=== PATIENT | female | born 1960 | race African-American/Black ===

== ENCOUNTER 2016-11-16 08:00 | Inpatient (IN) | payer BC ==
[2016-11-05 11:04] VITALS: BMI 29.2
[~2016-11-16 08:00] MED LIST: CEFAZOLIN 1 GM/D5W 50 ML IVPB ONE; ROPIVICAINE 0.2%/MORPH PF/KETOROLAC - 51ML DISP.SYRINGE IA ONE; TRANEXAMIC ACID 1000 MG/10 ML VIAL IVPUSH ONE
[2016-11-16] MEDS: GABAPENTIN 300 MG CAPSULE (FP) PO ONE ×2 (10:10→19:06)
[2016-11-16] MEDS: oxyCODONE HCL 10 MG SUSTAINED ACTING TABLET PO ONE ×2 (10:10→19:06)
[2016-11-16] MEDS: CELECOXIB 200 MG CAPSULE PO ONE ×2 (10:10→19:06)
[2016-11-16] MEDS ORDERED: VANCOMYCIN 1,000 MG VIAL (RESTRICTED TO ID ONLY) ONE (10:37)
[2016-11-16] MEDS ORDERED: ROPIVICAINE 0.2%/MORPH PF/KETOROLAC - 51ML DISP.SYRINGE IA ONE (10:37)
[2016-11-16] MEDS ORDERED: ceFAZolin SODIUM 1 GM VIAL ONE ×2 (10:37→12:13)
[2016-11-16] MEDS ORDERED: SODIUM CHLORIDE 0.9% P/F 10 ML VIAL IJ ONE (10:39)
[2016-11-16] MEDS ORDERED: ROPIVACAINE HCL 0.5% 30ML VIAL ONE (10:39)
[2016-11-16] MEDS ORDERED: MIDAZOLAM HCL 2 MG/2 ML SINGLE DOSE VIAL ONE (10:39)
[2016-11-16] MEDS ORDERED: DEXAMETHASONE SOD PHOSPHATE/PF 10 MG/ML SDV ONE (10:39)
[2016-11-16] MEDS ORDERED: TRANEXAMIC ACID 1000 MG/10 ML VIAL ONE ×4 (10:46→15:25)
[2016-11-16] MEDS ORDERED: BUPIVACAINE HCL/PF 0.5% (5MG/ML) 10 ML VIAL ONE (11:54)
[2016-11-16] MEDS ORDERED: PROPOFOL 20 ML ONE ×3 (12:07)
--- NOTE | 2016-11-16 12:20 | HP ---
Admitting History and Physical - Admission Chief Complaint: Left knee OA History of Present Illness: 56yo female with left knee pain x several years. She was treated conservatively in the office but continued to have severe pain. Xrays revealed severe OA. Pt indicated for left knee replacement History Source: Patient, Medical Record Limitations to Obtaining History: No Limitations - Smoking History Smoking history: Never smoked Have you smoked in the past 12 months: No - Alcohol/Substance Use Hx Alcohol Use: Yes (FEW TIMES PER WEEK) Home Medications - Allergies Allergies/Adverse Reactions: Allergies Allergy/AdvReac Type Severity Reaction Status Date / Time No Known Allergies Allergy Verified 11/16/16 09:23 - Home Medications Home Medications: Ambulatory Orders Hydrochlorothiazide [Hctz -] 12.5 mg PO DAILY 11/05/16 Metformin HCl [Metformin HCl ER] 500 mg PO BID 11/05/16 Physical Examination Vital Signs: Vital Signs Temperature 98.2 F 11/16/16 09:27 Pulse Rate 70 11/16/16 09:27 Respiratory Rate 16 11/16/16 09:27 Blood Pressure 108/70 11/16/16 09:27 O2 Sat by Pulse Oximetry (%) Constitutional: Yes: Well Nourished, No Distress Eyes: Yes: WNL, Conjunctiva Clear HENT: Yes: WNL, Atraumatic, Normocephalic Neck: Yes: WNL, Supple Cardiovascular: Yes: WNL, Regular Rate and Rhythm Respiratory: Yes: WNL, Regular Gastrointestinal: Yes: WNL, Soft ...Rectal Exam: Yes: Deferred Renal/: Yes: WNL Musculoskeletal: Yes: Joint Stiffness, Joint Swelling Edema: No Peripheral Pulses WNL: Yes Integumentary: Yes: WNL Neurological: Yes: WNL, Alert, Oriented ...Motor Strength: WNL Psychiatric: Yes: WNL, Alert, Oriented Labs: reviewed in chart Imaging - Results X-ray: Image Reviewed Problem List - Problems (1) Localized osteoarthritis of left knee Code(s): M17.9 - OSTEOARTHRITIS OF KNEE, UNSPECIFIED
[2016-11-16] MEDS ORDERED: ROPIVACAINE 0.2% 400ML 400 ML ML NR ONE (15:00)
--- NOTE | 2016-11-16 15:26 | OP ---
Operative Note - Note: Operative Date: 11/16/16 Pre-Operative Diagnosis: left knee OA Operation: left TKA Post-Operative Diagnosis: Same as Pre-op Surgeon: Bobby Naylor Associate Loan Officer: Marcella Pro Anesthesia: Spinal Estimated Blood Loss (mls): 100
[2016-11-16] MEDS ORDERED: MAGNESIUM HYDROX 2400MG/30ML ORAL SUSPENSION 30 ML CUP PO PRN (15:29)
[2016-11-16] MEDS ORDERED: ONDANSETRON 4 MG/2 ML VIAL IVPB PRN (15:29)
[2016-11-16] MEDS ORDERED: LACTATED RINGERS SOLUTION 1,000 ML IV SCH (15:30)
[2016-11-16] MEDS ORDERED: MAG HYDROX/AL HYDROX/SIMETH 30 ML UNIT-DOSE CUP PO PRN (15:50)
[2016-11-16] MEDS ORDERED: ACETAMINOPHEN 325 MG TABLET (FP) ONE (16:36)
[2016-11-16] MEDS ORDERED: traMADol HCL 50 MG TABLET ONE (16:37)
[2016-11-16] MEDS ORDERED: KETOROLAC TROMETHAMINE 30 MG/1 ML VIAL ONE (16:37)
[2016-11-16] MEDS: traMADol HCL 50 MG TABLET PO SCH ×2 (16:40→19:07)
[2016-11-16] MEDS: KETOROLAC TROMETHAMINE 30 MG/1 ML VIAL IVPUSH SCH ×2 (16:40→21:20)
[2016-11-16] MEDS: CEFAZOLIN 1 GM/D5W 50 ML IVPB SCH (19:09)
[2016-11-16] MEDS ORDERED: oxyCODONE HCL 5 MG TABLET PO PRN (19:23)
[2016-11-16] MEDS: oxyCODONE HCL 5 MG TABLET PO PRN (19:26)
[2016-11-16] MEDS: ACETAMINOPHEN 325 MG TABLET (FP) PO SCH (19:26)
[2016-11-16] MEDS: CELECOXIB 200 MG CAPSULE PO SCH (21:19)
[2016-11-16] MEDS: GABAPENTIN 300 MG CAPSULE (FP) PO SCH (21:19)
[2016-11-16] MEDS: ASCORBIC ACID 500 MG TABLET (FP) PO SCH (21:19)
[2016-11-16] MEDS: oxyCODONE HCL 10 MG SUSTAINED ACTING TABLET PO SCH (21:19)
[2016-11-16] MEDS: SENNOSIDES/DOCUSATE COMBO (SENNA PLUS) TABLET (UD) PO SCH (21:19)
--- NOTE | 2016-11-16 21:29 | SPEC ---
DATE OF OPERATION: 11/16/2016 PREOPERATIVE DIAGNOSIS: Left knee osteoarthritis. POSTOPERATIVE DIAGNOSIS: Left knee osteoarthritis. PROCEDURE: Left total knee replacement. ATTENDING: Bobby Naylor MD ACOUSTICS TEACHER: DARLEEN Escudero ANESTHESIA: Spinal plus sedation. ESTIMATED BLOOD LOSS: 100 mL. COMPLICATIONS: None. SPECIMEN: Resected bone was sent for pathology analysis. DISPOSITION: The patient was transferred to the PACU in stable condition. INDICATIONS: This is a 56-year-old female who presented to the office complaining of bilateral right knee pain. She was diagnosed with bilateral knee osteoarthritis which was severe. The left was the more symptomatic knee and because she had failed conservative management with medications, injections, and physical therapy, she was indicated for a total knee replacement. The risks, benefits and alternatives to the procedure were explained to the patient in great detail and she elected to proceed with the surgery. On the day of surgery, the patient was taken to the operating room and placed on the OR table. Spinal anesthesia was administered by the anesthesiologist. The patient was then positioned supine on the table and all bony prominences were padded. A nonsterile tourniquet was placed on the proximal thigh. The knee was then prepped and draped in the usual sterile fashion and intravenous antibiotics were given for infection prophylaxis. A surgical time-out was then performed with the team, and the patients identity, procedure, side, availability of implants, and the administration of antibiotics was confirmed. The leg was then elevated and exsanguinated, and the tourniquet was inflated. With the knee flexed, a midline incision was made and carried down through the subcutaneous fat to the underlying retinaculum. A medial parapatellar arthrotomy was performed. This was followed by a subperiosteal dissection of the tissue off the proximal, medial tibia. A portion of fat pad was removed from under the patellar tendon, and a small portion of fat was excised off the distal supracondylar femur. The knee was then flexed further and the anterior horn of the lateral meniscus was released from the midline. Next, the anterior and posterior cruciate ligaments were transected. Osteophytes were removed from both the femur and tibia. Grade 4 changes were noted diffusely throughout the knee. Hohmann retractors were then placed around the distal femur. The starting drill was used to enter the intramedullary canal. The starting point had been chosen by checking the radiographs and anatomy. Proper alignment and intramedullary placement was then confirmed by placing the long narrow harsh into the femur. Next, the distal femoral cutting guide was adjusted to 6 degrees of valgus and pinned to the femur. The bone resection was assessed using an jakob-wing. An approximately 10mm distal cut was made and the cut pieces measured. Once this was complete, the sizing guide was used to determine which size femoral component should be used. Next, the appropriately sized 4-in-1 cutting block was then placed at the correct amount of external rotation and the jakob wing was used to assure that there would be no notching of the anterior cortex of the femur. Once this was done, Hohmann retractors were used to protect the medial and lateral collateral ligaments, and all appropriate bone cuts were made. Attention was then turned to the tibia. Hohmann retractors were used to translate the tibia anteriorly and protect the collateral ligaments. The medial and lateral menisci were removed. The extramedullary tibial alignment guide was then placed and adjusted for rotation, varus/valgus, and slope. The height of the cutting block was adjusted to the level of the desired bone resection and then pinned in place. The proximal tibia was then cut with a saw and the bone was removed and measured. Once this was completed, trial components were placed and the knee was taken through a full range of motion. Soft tissue balance was assessed in both flexion and extension and found to be appropriate. The knee was stable throughout the full range of motion. The knee was then put into extension and the patella everted. The synovium around the patella was circumscribed with electrocautery. A caliper was used to measure the patellar thickness and a saw was then used to resect the patella at the chondro-osseous junction. The cut surface was then sized and drilled for the appropriate patellar button, with care taken to medialize it. A trial patella was then placed and the knee was again taken through a full range of motion. The knee was found to have both good balance and good patellar tracking. All of the components were removed except the tibial base plate. The appropriate instrumentation was used to drill and punch the proximal tibia for the keel of the final component. All bony surfaces were then cleaned with pulsatile lavage and dried. Bone cement was then prepared on the back table, and final components were cemented in place in the usual fashion. Extruded cement was removed. The polyethylene trial was placed, the knee was put into extension, and axial pressure was applied for compression while the cement hardened. The patellar button was similarly cemented into place. Once the cement had hardened, the knee was taken through a full range of motion to assess stability, balance, and patellar tracking. This was found to be optimal and the trial polyethylene was exchanged for the appropriately sized real implant. The wound was then thoroughly irrigated with normal saline. No. 1 Polysorb and 0 VLoc 180 barbed sutures were used to close the arthrotomy. No. 1 Polysorb and 2-0 Polysorb sutures were used in the subcutaneous tissues. The skin was closed using both 3-0 VLoc 90 suture in a running subcuticular fashion and SwiftSet skin adhesive. Once this was completed a sterile Aquacel dressing and compressive Bobby-wrap was applied. The tourniquet was then deflated and the patient was awakened and taken to the PACU in stable condition. Jhoana PATRICK/[id number]
[2016-11-17] MEDS: ACETAMINOPHEN 325 MG TABLET (FP) PO SCH ×4 (01:30→19:30)
[2016-11-17] MEDS: CEFAZOLIN 1 GM/D5W 50 ML IVPB SCH (02:17)
[2016-11-17] MEDS: KETOROLAC TROMETHAMINE 30 MG/1 ML VIAL IVPUSH SCH ×2 (03:18→09:27)
[2016-11-17] MEDS: traMADol HCL 50 MG TABLET PO SCH ×4 (05:48→17:48)
[2016-11-17 08:07] LABS: MCH 28.6 pg (25.7-33.7); MCHC 34.4 g/dl (32.0-36.0); MEAN CELL VOLUME 83.2 fl (80-96); MEAN PLT VOLUME 9.7 fl (7.5-11.1); PLATELET COUNT 208 K/MM3 (134-434); RDW 12.3 % (11.6-15.6); WHITE BLOOD COUNT 7.5 K/mm3 (4.0-10.0)
[2016-11-17] MEDS: ASPIRIN 325 MG TABLET PO SCH (08:12)
[2016-11-17] MEDS: oxyCODONE HCL 5 MG TABLET PO PRN ×3 (08:13→21:38)
[2016-11-17 08:24] LABS: CALCIUM 8.7 mg/dl (8.4-10.2); CREATININE 0.7 mg/dl (0.6-1.3)
[2016-11-17] MEDS: MULTIVITAMINS (DAILY MVI) TABLET (FP) PO SCH (09:25)
[2016-11-17] MEDS: PANTOPRAZOLE 40 MG TABLET (FP) PO SCH (09:25)
[2016-11-17] MEDS: SENNOSIDES/DOCUSATE COMBO (SENNA PLUS) TABLET (UD) PO SCH ×2 (09:25→21:38)
[2016-11-17] MEDS: HYDROCHLOROTHIAZIDE 12.5 MG CAPSULE (FP) PO SCH (09:25)
[2016-11-17] MEDS: ASCORBIC ACID 500 MG TABLET (FP) PO SCH ×2 (09:26→21:38)
[2016-11-17] MEDS: CELECOXIB 200 MG CAPSULE PO SCH ×2 (09:26→21:38)
[2016-11-17] MEDS: GABAPENTIN 300 MG CAPSULE (FP) PO SCH ×2 (09:26→21:38)
[2016-11-17] MEDS: oxyCODONE HCL 10 MG SUSTAINED ACTING TABLET PO SCH ×2 (09:31→22:07)
--- NOTE | 2016-11-17 13:54 | PN ---
Progress Note (short form) - Note Progress Note: 56F POD1 s/p left TKR under spinal anesthetic with continuous adductor canal catheter and selective tibial blocks for post-operative pain. Pt is doing well, AVSS, reports no anesthetic complications. Pain is well controlled. There is a minimal amount of leakage around adductor canal catheter, but site is clean, and patient is receiving good pain relief, so will leave. Catheter and connection appears intact. Sensory and motor function is intact in both lower extremities.
--- NOTE | 2016-11-17 23:42 | PN ---
Progress Note (short form) - Note Progress Note: Pt seen and examined. Comfortable, no complaints. AVSS Selected Entries 11/17/16 22:34 Temperature 98.2 F Pulse Rate 83 Respiratory 18 Rate Blood Pressure 120/64 O2 Sat by Pulse 98 Oximetry (%) Laboratory Tests 11/17/16 11/17/16 07:00 07:00 WBC 7.5 Hgb 10.7 Hct 31.1 L Plt Count 208 Sodium 136 Potassium 3.8 Chloride 102 Carbon Dioxide 27 Anion Gap 7 L BUN 12 Creatinine 0.7 Random Glucose 114 H Calcium 8.7 Gen: NAD LLE: c/d/i, NVID A/P 56yo female POD#1 s/p L TKA 1. PT/OOB 2. D/C home tomorrow Problem List - Problems (1) Localized osteoarthritis of left knee Code(s): M17.9 - OSTEOARTHRITIS OF KNEE, UNSPECIFIED
[2016-11-18] MEDS: ACETAMINOPHEN 325 MG TABLET (FP) PO SCH ×2 (01:07→08:21)
[2016-11-18 06:31] VITALS: BP 128/58; PULSE 86; TEMP 99.3
[2016-11-18] MEDS: oxyCODONE HCL 5 MG TABLET PO PRN (06:35)
[2016-11-18] MEDS: traMADol HCL 50 MG TABLET PO SCH ×3 (06:36→11:38)
--- NOTE | 2016-11-18 08:00 | PN ---
Progress Note (short form) - Note Progress Note: 56F POD1 s/p L TKR under spinal anesthetic with continuous adductor canal catheter and selective tibial catheter doing well. Adductor canal catheter d/c' d today, tip intact. Site clean and dry. Sensory and motor function intact in both lower extremities.
[2016-11-18] MEDS: ASPIRIN 325 MG TABLET PO SCH (08:19)
[2016-11-18 08:52] LABS: MCH 28.8 pg (25.7-33.7); MCHC 34.7 g/dl (32.0-36.0); MEAN CELL VOLUME 82.8 fl (80-96); MEAN PLT VOLUME 10.4 fl (7.5-11.1); PLATELET COUNT 186 K/MM3 (134-434); RDW 12.4 % (11.6-15.6); WHITE BLOOD COUNT 7.2 K/mm3 (4.0-10.0)
[2016-11-18] MEDS: HYDROCHLOROTHIAZIDE 12.5 MG CAPSULE (FP) PO SCH (09:08)
[2016-11-18] MEDS: SENNOSIDES/DOCUSATE COMBO (SENNA PLUS) TABLET (UD) PO SCH (09:08)
[2016-11-18] MEDS: ASCORBIC ACID 500 MG TABLET (FP) PO SCH (09:08)
[2016-11-18] MEDS: oxyCODONE HCL 10 MG SUSTAINED ACTING TABLET PO SCH (09:08)
[2016-11-18] MEDS: CELECOXIB 200 MG CAPSULE PO SCH (09:08)
[2016-11-18] MEDS: MULTIVITAMINS (DAILY MVI) TABLET (FP) PO SCH (09:08)
[2016-11-18] MEDS: GABAPENTIN 300 MG CAPSULE (FP) PO SCH (09:08)
[2016-11-18 09:15] LABS: CALCIUM 8.8 mg/dl (8.4-10.2); CREATININE 0.6 mg/dl (0.6-1.3)
[2016-11-18] MEDS: PANTOPRAZOLE 40 MG TABLET (FP) PO SCH (10:17)
--- NOTE | 2016-11-18 10:51 | PN ---
Progress Note (short form) - Note Progress Note: Pt seen and examined. Comfortable, no complaints. AVSS Selected Entries 11/18/16 06:00 Temperature 99.3 F Pulse Rate 86 Respiratory 19 Rate Blood Pressure 128/58 O2 Sat by Pulse 97 Oximetry (%) Oxygen Delivery Room Air Method Laboratory Tests 11/18/16 11/18/16 07:35 07:35 WBC 7.2 Hgb 10.3 L Hct 29.5 L Plt Count 186 Sodium 136 Potassium 3.5 Chloride 98 Carbon Dioxide 29 H Anion Gap 9 BUN 11 Creatinine 0.6 Random Glucose 122 H Calcium 8.8 Gen: NAD LLE: c/d/i, NVID A/P 56yo female POD#2 s/p L TKA 1. PT/OOB 2. D/C home today Problem List - Problems (1) Localized osteoarthritis of left knee Code(s): M17.9 - OSTEOARTHRITIS OF KNEE, UNSPECIFIED
--- NOTE | 2016-11-18 16:19 | PATH ---
Surgical Pathology Report Patient Name: JAMIE CROFT Med. Rec. #: [id number] /Age/Gender: 1960 (Age: 56) / F Account: [id number] Location: [facility] Taken: 11/16/2016 Received: 11/16/2016 Reported: 11/18/2016 Physicians: Bobby Naylor M.D. Specimen(s) Received LEFT KNEE BONES Clinical History Left knee osteoarthritis Final Diagnosis BONE AND SOFT TISSUE, LEFT KNEE, REPLACEMENT: DEGENERATIVE JOINT DISEASE. Electronically Signed Matthew Maurice M.D. Gross Description Received in formalin, labeled "left knee bones," is a 13.5 x 10.0 x 2.3 cm aggregate of multiple irregular portions of bone and soft tissue. The tibial plateau measures 6.8 x 5.2 x 1.5 cm. There is a 2.3 cm in greatest dimension area of eburnation present. The remaining articular surfaces are rodriguez-yellow and diffusely granular. The underlying trabecular bone is yellow and hard. Campus Interviews Intern sections are submitted in one cassette, following decalcification. 11/17/2016 [facility]
--- NOTE | 2016-11-25 18:08 | SURG ---
Surgery Caddy Master Note Caddy Master: Marcella Pro PA-C Date of Service: 11/16/16 Diagnosis: left knee OA Procedure: left TKA I was present for the entirety of the operative procedure. For further detail, please refer to operative report. Visit type - Case Type Case Type: Scheduled Admission
== END 2016-11-18 11:50 | disposition home health service (06) | DRG 470 ==
LOC: FM/S 08:27
PROVIDERS: ADMIT Student in an Organized Health Care Education/Training Program; ATTEND Student in an Organized Health Care Education/Training Program
PROC: 0SRD0J9 Replacement of Left Knee Joint with Synthetic Substitute, Cemented, Open Approach (ICD-10-PCS; principal; 2016-11-16 11:50)
DX: M17.12 Unilateral primary osteoarthritis, left knee (principal); E11.9 Type 2 diabetes mellitus without complications; I10 Essential (primary) hypertension; E78.5 Hyperlipidemia, unspecified
CPT/HCPCS: 36415; 73560-TC-LT; 80048; 85027; 88305-TC; 88311-TC; 94760; 97116-GP; 97162-PG

== ENCOUNTER 2017-02-04 07:05 | Day surgery (SDC) | payer BC ==
[2017-02-01 14:31] VITALS: BMI 28.5
[2017-02-04] MEDS ORDERED: KETOROLAC TROMETHAMINE 60 MG/2 ML VIAL ONE (08:58)
[2017-02-04] MEDS ORDERED: LIDOCAINE 1% P/F 10 MG/ML VIAL ONE (08:59)
[2017-02-04] MEDS ORDERED: BUPIVACAINE HCL/PF 2.5 MG/ML - 30 ML VIAL IJ ONE (08:59)
[2017-02-04] MEDS ORDERED: HYDROmorphone HCL/PF 1 MG/ML VIAL (FOR PYXIS CHARGING ONLY) ONE (09:04)
--- NOTE | 2017-02-04 09:09 | HP ---
History & Physical Update - History Currently as noted:: S/P L TKA 11/16/15. Developed arthrofibrosis postop. Otherwise Hx unchanged - Physical Physical: No Change - Assessment Currently as noted:: Left knee arthrofibrosis - Plan Currently as noted:: Left knee manipulation under anesthesia.
[2017-02-04] MEDS ORDERED: ACETAMINOPHEN 325 MG TABLET (FP) PO PRN (09:46)
[2017-02-04] MEDS ORDERED: ONDANSETRON 4 MG/2 ML VIAL IVPUSH PRN (09:47)
[2017-02-04] MEDS ORDERED: ACETAMINOPHEN 1000 MG/100 ML VIAL (NON FORMULARY) IVPB ONE (09:51)
[2017-02-04] MEDS ORDERED: oxyCODONE HCL 10 MG SUSTAINED ACTING TABLET PO ONE (09:52)
[2017-02-04] MEDS ORDERED: oxyCODONE HCL 5 MG TABLET PO ONE (09:52)
[2017-02-04] MEDS ORDERED: CELECOXIB 200 MG CAPSULE PO ONE (10:01)
[2017-02-04 10:27] VITALS: TEMP 98
[2017-02-04 11:28] VITALS: BP 119/75; PULSE 74
--- NOTE | 2017-02-04 15:59 | OP ---
DATE OF OPERATION: 02/04/2017 PREOPERATIVE DIAGNOSIS: Left total knee replacement arthrofibrosis. POSTOPERATIVE DIAGNOSIS: Left total knee replacement arthrofibrosis. PROCEDURE: Left knee manipulation under anesthesia. ATTENDING: Meek Ulloa MD SANITATION WORKER CLEANING EQUIPMENT: None. ANESTHESIA: Sedation. ESTIMATED BLOOD LOSS: 0 mL. COMPLICATIONS: None. DISPOSITION: The patient was transferred to the PACU in stable condition. INDICATIONS: This is a 56-year-old female who underwent a left total knee replacement for osteoarthritis on November 16, 2016. She did well postoperatively but developed stiffness of the knee, which was slow to respond to physical therapy. At 10 weeks postoperative, she still had limited range of motion and was not making progress. We discussed manipulation under anesthesia in the office and the risks, benefits and alternatives to this procedure were explained to the patient. She elected to proceed with the procedure. DESCRIPTION: On the day of the procedure, the patient was brought to the procedure area and placed on a stretcher. Sedation was administered by the anesthesiologist. A time-out was performed with the team to verify the patient's name, procedure side and site. Once the patient was adequately anesthetized, the pre-procedure range of motion of the left knee was measured with a goniometer. This was found to be 10 to 105 degrees with firm endpoints in both flexion and extension. With the patient adequately anesthetized, manipulation under anesthesia was performed. The knee was carefully pushed past its limits of flexion and extension with care taken to avoid placing excessive stress on the bone to minimize the risk of fracture. Scar tissue bands were audibly disrupted as the manipulation progressed and the final range of motion as measured with the goniometer was 0 to 130 degrees. At the conclusion of the procedure, the left knee was sterilely prepped and an intraarticular injection of 60 mg of Toradol, 2 mL of 1% lidocaine, and 6 mL of 0.25% Marcaine was injected. The patient was then awakened and taken to the PACU in stable condition. The plan for her post procedure will be to start physical therapy as soon as possible. She was given a new prescription for this. In addition, she would be given additional pain medications so that she can continue to move the knee to prevent re-fibrosis and reaccumulation of scar tissue. MEEK ULLOA M.D. [id number]
== END 2017-02-04 11:35 | disposition home or self-care (01) ==
LOC: FASU 07:05
PROVIDERS: ATTEND Student in an Organized Health Care Education/Training Program
PROC: 0SNDXZZ Release Left Knee Joint, External Approach (ICD-10-PCS; principal; 2017-02-04 09:19)
DX: M24.662 Ankylosis, left knee (principal); Z96.652 Presence of left artificial knee joint
CPT/HCPCS: 94760

== ENCOUNTER 2018-11-28 18:21 | Inpatient (IN) | payer BC ==
[2018-11-21 13:28] VITALS: BMI 28.9
--- NOTE | 2018-11-28 06:53 | HP ---
History & Physical Update - History History: No Change - Physical Physical: No Change - Assessment Assessment: No Change - Plan Plan: No Change (Initial H&P completed by Kelly Friend NP on 11/14/18. It is complete and accurate wnad will be scanned into her E-chart AARON. No new medications or complaints. Here today for elective PLIF C3-T1.)
[2018-11-28] MEDS: oxyCODONE HCL 10 MG SUSTAINED ACTING TABLET PO STA (10:40)
--- NOTE | 2018-11-28 16:20 | OP ---
Operative Note - Note: Operative Date: 11/28/18 Pre-Operative Diagnosis: Chronic cervical stenosis with radiculopathy Operation: C3-T1 PCDF. Neuromonitoring Post-Operative Diagnosis: Same as Pre-op Surgeon: Willian Matias Child Care: Augustin Hensley Anesthesiologist/RECORDS ASSOCIATE: Gonzalo Robles Anesthesia: General Estimated Blood Loss (mls): 20 Fluid Volume Replaced (mls): 1,400 Operative Report Dictated: Yes
--- NOTE | 2018-11-28 16:22 | SURG ---
Surgery E Commerce Manager Note E Commerce Manager: Augustin Hensley PA-C Date of Service: 11/28/18 Diagnosis: C3-T1 spinal stenosis with radiculopathy Procedure: Posterior Cervical Decompression Fusion / Instrumentation C3-T1, Neuromonitoring I was present for the entirety of the operative procedure. For further detail, please refer to operative report. Visit type - Case Type Case Type: Scheduled - New patient This patient is new to me today: Yes Date on this admission: 11/28/18
[~2018-11-28 18:21] MED LIST changes: +BACITRACIN 15 GM TUBE TOPICAL OINTMENT ONE; +BENZOIN/ALOE VERA/STORAX/TOLU 58 ML BOTTLE ONE; +CEFAZOLIN 1 GM in DEXTROSE 5%-WATER - 100 ML IVPB ONE; -CEFAZOLIN 1 GM/D5W 50 ML IVPB ONE; +DEXAMETHASONE SOD PHOSPHATE 4 MG/1 ML VIAL ONE; +HYDROmorphone *PCA* 10MG/50ML DISP.SYRIN PCA SCH; +HYDROmorphone HCL/PF 1 MG/ML AMP ONE; +LACTATED RINGERS SOLUTION 1,000 ML IV SCH; +LACTATED RINGERS SOLUTION 1,000 ML/1,000 ML INFUS.BAG IV SCH; +LIDOCAINE 1%/EPI 1:100000 (20 ML MULTI DOSE VIAL) ONE; +LIDOCAINE 1%/EPI 1:100000 (50 ML MULTI DOSE VIAL) INF ONE; +LIDOCAINE HCL/PF 2% SDV 5ML VIAL ONE; +MIDAZOLAM HCL 2 MG/2 ML SINGLE DOSE VIAL ONE; +ONDANSETRON 4 MG/2 ML VIAL IVPUSH PRN; +ONDANSETRON 4 MG/2 ML VIAL ONE; +PROPOFOL 20 ML ONE; +ROCURONIUM BROMIDE 50 MG/5 ML VIAL ONE; +ROPIVACAINE HCL 0.5% 30ML VIAL ONE; -ROPIVICAINE 0.2%/MORPH PF/KETOROLAC - 51ML DISP.SYRINGE IA ONE; +SUCCINYLCHOLINE CHLORIDE 200 MG/10 ML VIAL ONE; +THROMBIN (RECOMBINANT) 5,000 UNIT VIAL TP ONE; -TRANEXAMIC ACID 1000 MG/10 ML VIAL IVPUSH ONE; +diazePAM 2 MG TABLET PO PRN; +fentaNYL CITRATE 250 MCG/5 ML VIAL ONE; +oxyCODONE HCL 5 MG TABLET PO PRN
[2018-11-28] MEDS: CEFAZOLIN 1 GM/D5W 1 GM/50 ML BAG IVPB SCH (19:13)
[2018-11-28] MEDS: DOCUSATE SODIUM 100 MG CAPSULE (FP) PO SCH (21:37)
[2018-11-28] MEDS: HEPARIN NA (PORCINE) 5,000 UNITS/ML 1ML VIAL SQ SCH (21:41)
[2018-11-28] MEDS ORDERED: PATIENT'S OWN MEDICATION (NON-FORMULARY) (Metformin Hcl [Metformin Er Osmotic] 500 MG) PO SCH (22:00)
[2018-11-29] MEDS: INSULIN SLIDING SCALE (NOVOLOG) 1 VIAL SQ SCH ×6 (00:01→21:38)
[2018-11-29] MEDS: diphenhydrAMINE HCL 25 MG CAPSULE (FP) PO PRN ×2 (01:43→15:11)
[2018-11-29] MEDS: CEFAZOLIN 1 GM/D5W 1 GM/50 ML BAG IVPB SCH ×2 (01:51→10:04)
[2018-11-29] MEDS: DOCUSATE SODIUM 100 MG CAPSULE (FP) PO SCH ×3 (06:01→21:23)
[2018-11-29] MEDS: HEPARIN NA (PORCINE) 5,000 UNITS/ML 1ML VIAL SQ SCH ×3 (06:04→21:23)
--- NOTE | 2018-11-29 06:31 | PN ---
Addendum entered and electronically signed by Augustin Hensley PA 11/29/18 12:15: Anasthesia note appreciated. COCOA ROASTER stopped and transitioned to oral. Original Note: Progress Note (short form) - Note Progress Note: POD #1 s/p C3-T1 PCDF Alert. Sitting in bed at 30 degrees while wearing her c-collar as instructed. C/ o incisional tenderness however pain is controlled well via COCOA ROASTER. She hasn't been OOB yet. States that the pain/numbness/tingling she was experiencing in her upper back and bilat UE has diminished somewhat compared to before having surgery. Overall, she seems very pleased with results. Had some nausea early this morning but quelled with antiemetics. Deneis fever, chills, S[place]AGO, CP, palpitations, SOB or CHILDERS. Last Vital Signs Temp Pulse Resp BP Pulse Ox 99.9 F H 103 H 18 139/62 97 /09/07 06:20 11/29/18 04:00 11/29/18 04:00 11/29/18 04:00 11/28/18 22:27 HEMOVAC 11/28/18 11/28/18 11/29/18 11/29/18 22:27 23:00 05:06 06:00 Drain 100 100 40 40 PE Gen: alert. nad. Neck: C-Collar in place (removed to only look at dressing and skin)...Aquacel dressing intact. No evidence of palpable hematoma/drainage or erythema. Hemovac on suction and starting to thin out. Neuro: GMNVI bilat. LE: SCDs bilat. Soft. NT. <Augustin Hensley - Last Filed: 11/29/18 07:38> - Note Progress Note: Patient seen and examined Agree with above Pain control <Willian Matias - Last Filed: 12/02/18 10:50> Problem List - Problems (1) Spinal stenosis, cervical region Assessment/Plan: POD #1 s/p C3-T1 PCDF Patient doing well. Recovering as expected. Goals for today: Get OOB and ambulate with PT Wear your soft cervical collar 23hrs a day (may remove to eat and or shower) Cont Hemovac and record output q shift f/u Cervical XR Cont COCOA ROASTER --> plan on transitioning to PO pain management in AM Tylenol for fever > 100.3F Incentive Spirometer Tight glycemic control Sliding Scale as ordered Code(s): M48.02 - SPINAL STENOSIS, CERVICAL REGION <Augustin Hensley - Last Filed: 11/29/18 07:38>
[2018-11-29] MEDS: ONDANSETRON 4 MG/2 ML VIAL IVPUSH PRN (06:45)
[2018-11-29 08:19] LABS: HEMATOCRIT 33.5 % (32.4-45.2); HEMOGLOBIN 11.1 GM/dl (10.7-15.3); MEAN CELL VOLUME 84.7 fl (80-96); MEAN PLT VOLUME 9.7 fl (7.5-11.1); PLATELET COUNT 245 K/MM3 (134-434); RBC 3.96 M/mm3 (3.60-5.2); RDW 11.8 % (11.6-15.6); WHITE BLOOD COUNT 8.4 K/mm3 (4.0-10.8)
[2018-11-29 08:40] LABS: ANION GAP 9 MMOL/L (8-16); BLOOD UREA NITROGEN 8 mg/dl (7-18); CHLORIDE 99 mmol/L (98-107); CO2 27 mmol/L (21-32); CREATININE 0.5 mg/dl (0.55-1.3); GLUCOSE,RANDOM 116 mg/dl (74-106); POTASSIUM 3.4 mmol/L (3.5-5.1); SODIUM 135 mmol/L (136-145)
[2018-11-29] MEDS: oxyCODONE HCL 10 MG SUSTAINED ACTING TABLET PO STA (09:12)
--- NOTE | 2018-11-29 09:38 | PN ---
Progress Note (short form) - Note Progress Note: Anesthesiology Post-op/Pain Service 58 y.o. woman POD#1 s/p Posterior cervical discectomy with fusion. Pt. is sleeping comfortably in NAD. Per RN, pt is using [place] but is having pruritis and is able to tolerate PO. VSS. No acute issues. 58 y.o. woman with stable post-operative course. Will d/c [place] [place] and pt will start PO analgesics. Benadryl ordered for pruritis.
[2018-11-29] MEDS: FOLIC ACID 1 MG TABLET (FP) PO SCH (10:05)
[2018-11-29] MEDS: FERROUS SO4 325 MG TABLET (FP) PO SCH (10:05)
[2018-11-29] MEDS: CYANOCOBALAMIN 1,000 MCG TABLET (FP) PO SCH (10:05)
[2018-11-29] MEDS: HYDROCHLOROTHIAZIDE 12.5 MG CAPSULE (FP) PO SCH (10:05)
--- NOTE | 2018-11-29 10:10 | CONSULT ---
Consultation: REQUESTING PROVIDER: Dr. Matias CONSULT REQUEST: We have been asked to medically evaluate this patient post- operatively. HISTORY OF PRESENT ILLNESS: 58 year-old female with a PMH significant for HTN, HLD, Type II NIDDM, asthma, and chronic cervical stenosis s/p C3-T1 PCDF with Dr. Matias on 11/28/18. REVIEW OF SYSTEMS: CONSTITUTIONAL: Absent: fever, chills, diaphoresis, generalized weakness, malaise, loss of appetite, weight change HEENT: Absent: rhinorrhea, nasal congestion, throat pain, throat swelling, difficulty swallowing, mouth swelling, ear pain, eye pain, visual changes CARDIOVASCULAR: Absent: chest pain, syncope, palpitations, irregular heart rate, lightheadedness , peripheral edema RESPIRATORY: Absent: cough, shortness of breath, dyspnea with exertion, orthopnea, wheezing, stridor, hemoptysis GASTROINTESTINAL: Absent: abdominal pain, abdominal distension, nausea, vomiting, diarrhea, constipation, melena, hematochezia GENITOURINARY: Absent: dysuria, frequency, urgency, hesitancy, hematuria, flank pain, genital pain MUSCULOSKELETAL: +surgical site pain Absent: myalgia, arthralgia, joint swelling, back pain, hoarseness, difficulty swallowing SKIN: Absent: rash, itching, pallor HEMATOLOGIC/IMMUNOLOGIC: Absent: easy bleeding, easy bruising, lymphadenopathy, frequent infections ENDOCRINE: Absent: unexplained weight gain, unexplained weight loss, heat intolerance, cold intolerance NEUROLOGIC: Absent: headache, focal weakness or paresthesias, dizziness, unsteady gait, seizure, mental status changes, bladder or bowel incontinence PSYCHIATRIC: Absent: anxiety, depression, suicidal or homicidal ideation, hallucinations. PHYSICAL EXAMINATION Vital Signs - 24 hr 11/29/18 11/29/18 11/29/18 04:00 06:20 07:13 Temperature 100.2 F H 99.9 F H Pulse Rate 103 H 103 H Respiratory 18 18 Rate Blood Pressure 139/62 139/62 O2 Sat by Pulse Oximetry (%) 11/29/18 09:58 Temperature 98.7 F Pulse Rate 99 H Respiratory 18 Rate Blood Pressure 138/59 L O2 Sat by Pulse Oximetry (%) GENERAL: Awake, alert, and fully oriented, in no acute distress. HEAD: Soft cervical collar in place EYES: Pupils equal, round and reactive to light, extraocular movements intact, sclera anicteric, conjunctiva clear. No lid lag. EARS, NOSE, THROAT: Ears normal, nares patent, oropharynx clear without exudates. Moist mucous membranes. LUNGS: Breath sounds equal, clear to auscultation bilaterally. No wheezes, and no crackles. No accessory muscle use. HEART: Regular rate and rhythm, normal S1 and S2 ABDOMEN: Soft, nontender, not distended, normoactive bowel sounds UPPER EXTREMITIES: 2+ pulses, warm, well-perfused. No cyanosis. No clubbing. Cap refill <2 seconds. No peripheral edema. LOWER EXTREMITIES: 2+ pulses, warm, well-perfused. No calf tenderness. No peripheral edema. NEUROLOGICAL: Cranial nerves II-XII intact. Normal speech. Laboratory Results - last 24 hr 11/29/18 11/29/18 07:10 07:10 WBC 8.4 RBC 3.96 Hgb 11.1 Hct 33.5 MCV 84.7 MCH 28.0 MCHC 33.0 RDW 11.8 Plt Count 245 MPV 9.7 Sodium 135 L Potassium 3.4 L Chloride 99 Carbon Dioxide 27 Anion Gap 9 BUN 8 Creatinine 0.5 L Creat Clearance w eGFR > 60 POC Glucometer Random Glucose 116 H Calcium 9.0 Active Medications Generic Name Dose Route Start Last Admin Trade Name Freq PRN Reason Stop Dose Admin Cyanocobalamin 1,000 mcg 11/29/18 10:00 11/29/18 10:05 Vitamin B12 - PO 1,000 mcg DAILY YON Administration Diazepam 2 mg 11/28/18 16:31 Valium - PO Q8H PRN MUSCLE SPASMS Diphenhydramine HCl 25 mg 11/28/18 16:22 11/29/18 01:43 Benadryl - PO 25 mg Q6H PRN Administration FOR ITCHING Docusate Sodium 100 mg 11/28/18 22:00 11/29/18 06:01 Colace - PO 100 mg TID YON Administration Ergocalciferol 50,000 unit 12/02/18 10:00 Drisdol - PO Fr@1000 YON Ferrous Sulfate 325 mg 11/29/18 10:00 11/29/18 10:05 Feosol - PO 325 mg DAILY YON Administration Folic Acid 1 mg 11/29/18 10:00 11/29/18 10:05 Folic Acid - PO 1 mg DAILY YON Administration Heparin Sodium (Porcine) 5,000 unit 11/28/18 22:00 11/29/18 06:04 Heparin - SQ 5,000 unit TID YON Administration Hydrochlorothiazide 12.5 mg 11/29/18 10:00 11/29/18 10:05 Hctz - PO 12.5 mg DAILY YON Administration Cefazolin Sodium 1 gm in 50 mls @ 100 mls/hr 11/28/18 18:00 11/29/18 10:04 Ancef 1 Gm Premixed Ivpb - IVPB 11/29/18 17:59 100 mls/hr Q8H-IV YON Administration Lactated Ringer's 1,000 mls @ 125 mls/hr 11/28/18 16:45 11/29/18 09:12 Lactated Ringers Solution IV Not Given ASDIR [facility] Insulin Aspart 1 vial 11/28/18 16:30 11/29/18 09:12 Novolog Vial Sliding Scale - SQ Not Given ACHS [facility] Protocol Metformin HCl 500 mg 11/28/18 21:00 11/29/18 06:01 Glucophage Xr - PO 500 mg BIDAC YON Administration Morphine Sulfate 4 mg 11/28/18 16:22 Morphine Sulfate IVPUSH 12/01/18 16:21 Q4H PRN PAIN LEVEL 7 - 10 Ondansetron HCl 4 mg 11/28/18 16:38 11/29/18 06:45 Zofran Injection IVPUSH 4 mg Q6H PRN Administration NAUSEA AND/OR VOMITING Oxycodone HCl 5 mg 11/28/18 16:22 Roxicodone - PO Q4H PRN PAIN LEVEL 1-5 Oxycodone HCl 10 mg 11/28/18 16:22 Roxicodone - PO Q4H PRN PAIN LEVEL 6-10 ASSESSMENT/PLAN 58 year-old female with a PMH significant for HTN, HLD, Type II NIDDM, asthma, and chronic cervical stenosis s/p C3-T1 PCDF with Dr. Matias on 11/28/18. s/p C3-T1 PCDF --POD #1 --perioperative antibiotics per surgery --pain management per surgery; [facility] [employer]OR pump dc'd today --protonix --bowel regimen --incentive spirometry Hypertension --BP stable --continue HCTZ Hyperlipidemia --continue statin Type II NIDDM --continue metformin --Novolog sliding scale coverage FEN Fluids: PO intake adequate Electrolytes: replete as indicated Nutrition: regular diet DVT prophylaxis: OOB, ambulation, SCDs, TEDs, ASA 81mg BID Physical therapy Dispo: continues to require inpatient care. Full code. Dispo: We will continue to follow the patient. Thank you for this consultative opportunity. Visit type - Emergency Visit Emergency Visit: No - New Patient This patient is new to me today: Yes Date on this admission: 11/29/18 - Critical Care Critical Care patient: No
--- NOTE | 2018-11-29 11:09 | OP ---
DATE OF OPERATION: 11/28/2018 PREOPERATIVE DIAGNOSIS: Cervical stenosis, C3-T1. POSTOPERATIVE DIAGNOSIS: Cervical stenosis, C3-T1. PROCEDURE PERFORMED: 1. Posterior cervical fusion, C3-4, C4-5, C5-6, C6-7, C7-T1. 2. Placement of instrumentation, C3 to T1. 3. Posterior cervical laminectomy, C3 to C6. SURGEON: Willian Matias MD OPERATIONS OFFICER AFLOAT: DARLEEN Smith ESTIMATED BLOOD LOSS: 100 mL. INTRAVENOUS FLUIDS: Per Anesthesia. ANESTHESIA: General/MCP block. COMPLICATIONS: There were none. DISPOSITION: Patient brought to the PACU in stable condition. INDICATION FOR SURGERY: The patient is a 58-year-old female who has been suffering from pain from her back from her neck down her arms. She had also noticed difficulty using her hands and had also noticed difficulty with balance. X-rays and MRI were completed which noted that she had cervical stenosis. I had a discussion with her regarding cervical myelopathy and discussed the stepwise deterioration in function typically seen. I recommended surgery to prevent any further loss of neurologic function. Risks, benefits and alternatives were discussed and the patient consented to surgery. OPERATIVE NOTE: Patient brought to the operating room by the anesthesia staff. After appropriate patient identification was performed general anesthesia was given. The MCP block was also given. Gama head tongs were placed around her head and she was turned prone on to the OR table. All areas of bony prominences were well padded at this time. Two needles were placed into her neck to clarisa off the C3 to T1 locations. X-ray was taken to confirm this was correct. Needle was removed and 10 mL of lidocaine with epinephrine was injected into her neck at this time. Her neck was prepped and draped in a sterile manner. At this point a timeout was completed. An incision was made from the top of C3 down to the bottom of T1. Dissection was carried down to the fascia. Fascia was then split open at this time. Appropriate retractor was then placed in. A trocar was placed on to the C4 spinous process. X-ray was taken to confirm this was correct. Trocar was removed. The interspinous ligament at C2-3, C3-4, C4-5, C5-6 and C6- 7 was removed. Lateral mass drill holes were made from C3 down to C6. Pedicle screws were placed into T1 bilaterally using standard techniques. Troughs were made from C3 to C6 and the laminectomy was done from C3 to C6. The facet joints were decorticated. Bone was laid down. Screws were placed in from C3 to C6. The harsh was measured and placed in. Caps were placed in. Compression was applied on both sides. Bone graft was laid down. Deep drain was placed. The fascia was closed with a No. 1 Rapide suture. Subcutaneous tissues closed with 2-0 Vicryl suture. Skin was closed with pako. Dermabond was applied. A sterile dressing was applied. Patient was placed supine on the OR bed, extubated in the OR and brought to the PACU in stable condition. Jhoana FULLER/[id number] MTDD
[2018-11-29] MEDS: POTASSIUM CHLORIDE TABS 20 MEQ TABLET.ER (FP) PO SCH ×2 (11:26→16:56)
[2018-11-29] MEDS: morphine SULFATE 4 MG/ML VIAL IVPUSH PRN ×2 (12:05→16:56)
[2018-11-29] MEDS ORDERED: BISACODYL 10 MG SUPP.RECT RC PRN (12:55)
[2018-11-29] MEDS ORDERED: PATIENT'S OWN MEDICATION (NON-FORMULARY) (Simvastatin [Simvastatin] 20 MG) PO SCH (13:00)
[2018-11-29] MEDS: PANTOPRAZOLE 40 MG TABLET (FP) PO SCH (13:44)
[2018-11-29] MEDS ORDERED: diazePAM 5 MG TABLET PO PRN (18:40)
[2018-11-29] MEDS: diazePAM 5 MG TABLET PO SCH (19:43)
[2018-11-29] MEDS: ACETAMINOPHEN 325 MG TABLET (FP) PO PRN ×2 (19:44→23:56)
[2018-11-29] MEDS: POLYETHYLENE GLYCOL 3350 119 GM BTL PO SCH (21:22)
[2018-11-30] MEDS: diazePAM 5 MG TABLET PO SCH ×4 (00:06→18:46)
[2018-11-30] MEDS: DOCUSATE SODIUM 100 MG CAPSULE (FP) PO SCH ×3 (05:13→21:22)
[2018-11-30] MEDS: HEPARIN NA (PORCINE) 5,000 UNITS/ML 1ML VIAL SQ SCH ×3 (05:13→21:22)
[2018-11-30] MEDS: INSULIN SLIDING SCALE (NOVOLOG) 1 VIAL SQ SCH ×4 (06:35→23:27)
[2018-11-30] MEDS ORDERED: KETOROLAC TROMETHAMINE 15 MG/ML VIAL IVPUSH PRN (07:49)
--- NOTE | 2018-11-30 07:58 | PN ---
Progress Note (short form) - Note Progress Note: POD 2, s/p C3-T1 PCDF Pt seen and examined. Reports 10/10 pain despite current pain regimen. Requesting additional pain meds. Tolerating PO, though minimal due to lack of appetite secondary to pain. Has been oob to restroom without issue. Reports urinary frequency which is new over the past day, denies dysuria, incontinence. Denies cps/ob, n/v/d, calf pain/edema. Vital Signs Temp 99.4 F 11/30/18 06:00 Pulse 104 H 11/30/18 06:00 Resp 19 11/30/18 06:00 BP 138/72 11/30/18 06:00 Pulse Ox 95 11/29/18 22:00 Intake & Output 11/29/18 11/29/18 11/30/18 11:59 23:59 11:59 Intake Total 700 975 300 Output Total 330 1230 340 Balance 370 -255 -40 Intake: IVPB 200 Oral 700 775 300 Output: Drainage 80 80 40 Posterior Neck 80 80 40 Urine 250 1150 300 Void 250 1150 300 Other: Voiding Method Diaper Toilet # Unmeasured Voids Void 3 2 2 Abnormal Lab Results 11/29/18 11/30/18 07:10 07:20 Sodium 135 L 133 L Potassium 3.4 L Chloride 96 L Creatinine 0.5 L 0.5 L Random Glucose 116 H 109 H Total Bilirubin 1.3 H Albumin 3.2 L CBC, BMP 11/30/18 07:20 11/30/18 07:20 Gen: awake, alert, nad. Pt ambulating to bed from restroom upon arrival to room , gait slow but steady. Neck: Posterior dressing c/d/i, HV in place with serous drainage in tube and serosanguinous drainage in reservoir (<5ml) Resp: Unlabored on RA Neuro: Decreased effort secondary to pain. B/L UE onshore diver strength strong and equal. B/L UE 4+/5 biceps/triceps. Sensation diminished throughout hand ( baseline per pt). B/L LE 5/5 dorsiflexion/plantar flexion, 5/5 knee ext/flex/ hip ext. Sensation diminished in b/l feet (baseline per pt) SCDs in place A/P: 58y/o F w/ PMHx HTN, HLD, Type II NIDDM, asthma, and chronic cervical stenosis now POD 2, s/p C3-T1 PCDF. -Pain / this AM -Continues to have low grade fevers overnight, now w/ urinary frequency -Tachy to 1teens, likely secondary to pain -Neuro exam stable CORBIN output overnight: 40ml -Will add Toradol 15mg IV q6h scheduled, oxy 5/10/mg q3hrs prn, Valium 5mg q6hrs prn -UA w/ reflex ordered -Warm pack to b/l shoulder/trap area -DVT prophylaxis with b/l scds, heparin 5000units sq tid -OOB and ambulate with PT -Cont Hemovac and record output q shift -Tylenol 650mg q4hrs prn fever > 100.3F -Incentive Spirometer -Tight glycemic control -Sliding Scale as ordered -Medical consult appreciated above d/w attending Dr Matias <Bee Saavedra - Last Filed: 11/30/18 08:44> - Note Progress Note: Patient still having pain Will try a different regimen of pain control today <Willian Matias - Last Filed: 12/02/18 10:51>
[2018-11-30] MEDS ORDERED: oxyCODONE HCL 5 MG TABLET PO PRN (08:02)
[2018-11-30 08:04] LABS: BASO % 0.5 % (0-2.0); EOS % 0.3 % (0-4.5); HEMATOCRIT 32.8 % (32.4-45.2); HEMOGLOBIN 11.3 GM/dl (10.7-15.3); LYMPH % 18.4 % (8-40); MCH 29.1 pg (25.7-33.7); MCHC 34.4 g/dl (32.0-36.0); MEAN CELL VOLUME 84.9 fl (80-96); MEAN PLT VOLUME 9.8 fl (7.5-11.1); MONO % 7.9 % (3.8-10.2); NEUT % 72.9 % (42.8-82.8); PLATELET COUNT 223 K/MM3 (134-434); RBC 3.87 M/mm3 (3.60-5.2); WHITE BLOOD COUNT 9.1 K/mm3 (4.0-10.8)
[2018-11-30 08:09] LABS: ALBUMIN 3.2 g/dl (3.4-5.0); ALK PHOS 45 U/L (45-117); ANION GAP 9 MMOL/L (8-16); BILIRUBIN,TOTAL 1.3 mg/dl (0.2-1); BLOOD UREA NITROGEN 7 mg/dl (7-18); CALCIUM 9.1 mg/dl (8.5-10); CHLORIDE 96 mmol/L (98-107); CO2 28 mmol/L (21-32); CREATININE 0.5 mg/dl (0.55-1.3); GLUCOSE,RANDOM 109 mg/dl (74-106); MAGNESIUM 1.9 mg/dL (1.8-2.4); SGOT/AST 37 U/L (15-37); SGPT/ALT 17 U/L (13-61); SODIUM 133 mmol/L (136-145); TOT PROT 6.7 g/dl (6.4-8.2)
[2018-11-30] MEDS: KETOROLAC TROMETHAMINE 15 MG/ML VIAL IVPUSH SCH ×3 (08:35→20:15)
[2018-11-30] MEDS: ONDANSETRON 4 MG/2 ML VIAL IVPUSH PRN (10:33)
[2018-11-30] MEDS: POLYETHYLENE GLYCOL 3350 119 GM BTL PO SCH ×2 (10:34→22:00)
[2018-11-30] MEDS: CYANOCOBALAMIN 1,000 MCG TABLET (FP) PO SCH (10:35)
[2018-11-30] MEDS: FERROUS SO4 325 MG TABLET (FP) PO SCH (10:35)
[2018-11-30] MEDS: HYDROCHLOROTHIAZIDE 12.5 MG CAPSULE (FP) PO SCH (10:35)
[2018-11-30] MEDS: PANTOPRAZOLE 40 MG TABLET (FP) PO SCH (10:35)
[2018-11-30] MEDS: ACETAMINOPHEN 325 MG TABLET (FP) PO PRN ×2 (10:36→17:32)
[2018-11-30] MEDS: FOLIC ACID 1 MG TABLET (FP) PO SCH (10:36)
[2018-11-30] MEDS: CEFAZOLIN 1 GM/D5W 1 GM/50 ML BAG IVPB SCH ×2 (11:48→17:14)
[2018-11-30] MEDS: oxyCODONE HCL 5 MG TABLET PO PRN ×2 (11:48→17:33)
[2018-11-30 12:19] LABS: PH,URINE 6.5 (4.5-8); URINE APPEARANCE Clear; URINE BILIRUBIN Negative (NEGATIVE); URINE COLOR Yellow; URINE GLUCOSE (UA) Negative (NEGATIVE); URINE KETONE 1+ (NEGATIVE); URINE LEUK ESTERASE Negative (NEGATIVE); URINE NITRITE Negative (NEGATIVE); URINE PROTEIN Negative (NEGATIVE); URINE UROBILINOGEN 0.2 (0.2-1.0)
[2018-11-30 12:51] LABS: EPI CELLS 1+ /HPF; URINE BACTERIA NONE SEEN /hpf (NEGATIVE); URINE RBC 0-3 /hpf (0-3); URINE WBC 0-3 (0-5)
--- NOTE | 2018-11-30 13:09 | PN ---
Physical Exam: SUBJECTIVE: Patient seen and examined at bedside. Pain is mildly improved from yesterday. Able to get back and forth from bathroom with assistance. Has tingling in fingers of both hands, slightly improved in right hand. These symptoms were present pre-surgery. OBJECTIVE: Vital Signs Period Temp Pulse Resp BP Sys/Loving Pulse Ox Last 24 Hr 98.3 F-101.1 F 100-124 18-19 134-153/68-79 95-100 GENERAL: The patient is awake, alert, and fully oriented, in no acute distress. HEAD: Posterior neck surgical dressing c/d/i; no surrounding erythema, warmth, fluctuance LUNGS: Breath sounds equal, clear to auscultation HEART: Regular rate and rhythm, S1, S2 without murmur, rub or gallop. ABDOMEN: Soft, nontender, nondistended EXTREMITIES: 2+ pulses, warm, well-perfused, no edema. NEUROLOGICAL: Cranial nerves II through XII grossly intact. Normal speech, steady gait observed. Moving all extremities freely. Laboratory Results - last 24 hr 11/29/18 11/29/18 11/30/18 16:36 21:32 05:16 WBC RBC Hgb Hct MCV MCH MCHC RDW Plt Count MPV Absolute Neuts (auto) Neutrophils % Lymphocytes % Monocytes % Eosinophils % Basophils % Sodium Potassium Chloride Carbon Dioxide Anion Gap BUN Creatinine Creat Clearance w eGFR POC Glucometer 148 183 113 Random Glucose Calcium Magnesium Total Bilirubin AST ALT Alkaline Phosphatase Total Protein Albumin Urine Color Urine Appearance Urine pH Ur Specific [place] Urine Protein Urine Glucose (UA) Urine Ketones Urine Blood Urine Nitrite Urine Bilirubin Urine Urobilinogen Ur Leukocyte Esterase 11/30/18 11/30/18 11/30/18 07:20 07:20 10:50 WBC 9.1 RBC 3.87 Hgb 11.3 Hct 32.8 MCV 84.9 MCH 29.1 MCHC 34.4 RDW 12.0 Plt Count 223 MPV 9.8 Absolute Neuts (auto) 6.7 Neutrophils % 72.9 Lymphocytes % 18.4 Monocytes % 7.9 Eosinophils % 0.3 Basophils % 0.5 Sodium 133 L Potassium 4.0 Chloride 96 L Carbon Dioxide 28 Anion Gap 9 BUN 7 Creatinine 0.5 L Creat Clearance w eGFR > 60 POC Glucometer Random Glucose 109 H Calcium 9.1 Magnesium 1.9 Total Bilirubin 1.3 H AST 37 ALT 17 Alkaline Phosphatase 45 Total Protein 6.7 Albumin 3.2 L Urine Color Yellow Urine Appearance Clear Urine pH 6.5 Ur Specific [place] 1.020 Urine Protein Negative Urine Glucose (UA) Negative Urine Ketones 1+ H Urine Blood Trace-intact H Urine Nitrite Negative Urine Bilirubin Negative Urine Urobilinogen 0.2 Ur Leukocyte Esterase Negative 11/30/18 11:47 WBC RBC Hgb Hct MCV MCH MCHC RDW Plt Count MPV Absolute Neuts (auto) Neutrophils % Lymphocytes % Monocytes % Eosinophils % Basophils % Sodium Potassium Chloride Carbon Dioxide Anion Gap BUN Creatinine Creat Clearance w eGFR POC Glucometer 111 Random Glucose Calcium Magnesium Total Bilirubin AST ALT Alkaline Phosphatase Total Protein Albumin Urine Color Urine Appearance Urine pH Ur Specific [place] Urine Protein Urine Glucose (UA) Urine Ketones Urine Blood Urine Nitrite Urine Bilirubin Urine Urobilinogen Ur Leukocyte Esterase Active Medications Generic Name Dose Route Start Last Admin Trade Name Freq PRN Reason Stop Dose Admin Acetaminophen 650 mg 11/29/18 19:23 11/30/18 10:36 Tylenol - PO 650 mg Q4H PRN Administration FEVER Atorvastatin Calcium 10 mg 11/30/18 22:00 Lipitor - PO HS YON Bisacodyl 10 mg 11/29/18 12:55 Dulcolax Suppository - RC DAILY PRN CONSTIPATION Cyanocobalamin 1,000 mcg 11/29/18 10:00 11/30/18 10:35 Vitamin B12 - PO 1,000 mcg DAILY YON Administration Diazepam 5 mg 11/29/18 19:00 11/30/18 06:35 Valium - PO 5 mg Q6H YON Administration Diphenhydramine HCl 25 mg 11/28/18 16:22 11/29/18 15:11 Benadryl - PO 25 mg Q6H PRN Administration FOR ITCHING Docusate Sodium 100 mg 11/28/18 22:00 11/30/18 05:13 Colace - PO 100 mg TID YON Administration Ergocalciferol 50,000 unit 12/02/18 10:00 Drisdol - PO Fr@1000 YON Ferrous Sulfate 325 mg 11/29/18 10:00 11/30/18 10:35 Feosol - PO 325 mg DAILY YON Administration Folic Acid 1 mg 11/29/18 10:00 11/30/18 10:36 Folic Acid - PO 1 mg DAILY YON Administration Heparin Sodium (Porcine) 5,000 unit 11/28/18 22:00 11/30/18 05:13 Heparin - SQ 5,000 unit TID YON Administration Hydrochlorothiazide 12.5 mg 11/29/18 10:00 11/30/18 10:35 Hctz - PO 12.5 mg DAILY YON Administration Cefazolin Sodium 1 gm in 50 mls @ 100 mls/hr 11/30/18 11:00 11/30/18 11:48 Ancef 1 Gm Premixed Ivpb - IVPB 100 mls/hr Q8H-IV YON Administration Insulin Aspart 1 vial 11/28/18 16:30 11/30/18 11:49 Novolog Vial Sliding Scale - SQ Not Given ACHS [facility] Protocol Ketorolac Tromethamine 15 mg 11/30/18 08:00 11/30/18 08:35 Toradol Injection - IVPUSH 12/05/18 07:59 15 mg Q6H YON Administration Metformin HCl 500 mg 11/28/18 21:00 11/30/18 06:32 Glucophage Xr - PO 500 mg BIDAC YON Administration Morphine Sulfate 4 mg 11/28/18 16:22 11/29/18 16:56 Morphine Sulfate IVPUSH 12/01/18 16:21 4 mg Q4H PRN Administration PAIN LEVEL 7 - 10 Ondansetron HCl 4 mg 11/28/18 16:38 11/30/18 10:33 Zofran Injection IVPUSH 4 mg Q6H PRN Administration NAUSEA AND/OR VOMITING Oxycodone HCl 5 mg 11/30/18 08:02 Roxicodone - PO Q3H PRN PAIN LEVEL 1-5 Oxycodone HCl 10 mg 11/30/18 08:03 11/30/18 11:48 Roxicodone - PO 10 mg Q3H PRN Administration PAIN LEVEL 6-10 Pantoprazole Sodium 40 mg 11/29/18 13:00 11/30/18 10:35 Protonix - PO 40 mg DAILY YON Administration Polyethylene Glycol 17 gm 11/29/18 22:00 11/30/18 10:34 Miralax (For Daily Use) - PO 17 g BID YON Administration ASSESSMENT/PLAN 58 year-old female with a PMH significant for HTN, HLD, Type II NIDDM, asthma, and chronic cervical stenosis s/p C3-T1 PCDF with Dr. Matias on 11/28/18. s/p C3-T1 PCDF --POD #2 --perioperative antibiotics per surgery; Cefazolin q8h --BP is stable, but tachycardic, likely due to pain which is being managed by surgery service; morphine IVP PRN, ketorolac IVP scheduled, PO meds --protonix --bowel regimen: no BM yet --incentive spirometry --Hemovac drain, serosanguinous drainage Hypertension --BP stable --continue HCTZ Hyperlipidemia --continue statin Type II NIDDM --continue metformin --Novolog sliding scale coverage FEN Fluids: PO intake adequate Electrolytes: replete as indicated Nutrition: regular diet DVT prophylaxis: OOB, ambulation, SCDs, TEDs, subq heparin Physical therapy Dispo: continues to require inpatient care. Full code. Visit type - Emergency Visit Emergency Visit: Yes ED Registration Date: 11/28/18 Care time: The patient presented to the Emergency Department on the above date and was hospitalized for further evaluation of their emergent condition. - New Patient This patient is new to me today: No - Critical Care Critical Care patient: No
[2018-11-30] MEDS: ATORVASTATIN CA 10 MG TABLET (FP) PO SCH (21:22)
[2018-12-01] MEDS: diazePAM 5 MG TABLET PO SCH ×4 (01:34→19:33)
[2018-12-01] MEDS: CEFAZOLIN 1 GM/D5W 1 GM/50 ML BAG IVPB SCH ×2 (01:34→10:10)
[2018-12-01] MEDS: KETOROLAC TROMETHAMINE 15 MG/ML VIAL IVPUSH SCH (02:44)
[2018-12-01] MEDS: DOCUSATE SODIUM 100 MG CAPSULE (FP) PO SCH ×3 (06:06→21:05)
[2018-12-01] MEDS: HEPARIN NA (PORCINE) 5,000 UNITS/ML 1ML VIAL SQ SCH ×3 (06:08→21:05)
[2018-12-01] MEDS: INSULIN SLIDING SCALE (NOVOLOG) 1 VIAL SQ SCH ×4 (06:08→21:27)
--- NOTE | 2018-12-01 07:36 | PN ---
Addendum entered and electronically signed by Augustin Hensley PA 12/01/18 08:43: Dr. Andrews contacted me and informed he is away. Consult canceled. Will find new Pain Management Physician after Dr. Matias sees patient this morning Original Note: Progress Note (short form) - Note Progress Note: POD #3 s/p C3-T1 PCDF Alert. Still c/o neck pain / with current pain med regimen. She is getting OOB and ambulating with PT. Not wearing her soft cervical collar as instructed. Tolerating PO diet. Denies n/v/f/c, [place], dizzy, weak, CP, palpitations, SOB or CHILDERS. Last Vital Signs Temp Pulse Resp BP Pulse Ox 98.6 F 92 H 19 117/62 96 12/01/18 06:00 12/01/18 06:00 12/01/18 06:00 12/01/18 06:00 12/01/18 06:00 Urine Test Results Urine Color Yellow 11/30/18 10:50 Urine Appearance Clear 11/30/18 10:50 Urine pH 6.5 (4.5-8) 11/30/18 10:50 Ur Specific [place] 1.020 (1.010-1.035) 11/30/18 10:50 Urine Protein Negative (NEGATIVE) 11/30/18 10:50 Urine Glucose (UA) Negative (NEGATIVE) 11/30/18 10:50 Urine Ketones 1+ (NEGATIVE) H 11/30/18 10:50 Urine Blood Trace-intact (NEGATIVE) H 11/30/18 10:50 Urine Nitrite Negative (NEGATIVE) 11/30/18 10:50 Urine Bilirubin Negative (NEGATIVE) 11/30/18 10:50 Ur Leukocyte Esterase Negative (NEGATIVE) 11/30/18 10:50 Urine RBC 0-3 /hpf (0-3) 11/30/18 10:50 Urine WBC 0-3 (0-5) 11/30/18 10:50 Ur Epithelial Cells 1+ /HPF 11/30/18 10:50 Urine Bacteria None seen /hpf (NEGATIVE) 11/30/18 10:50 PE Gen: Alert, NAD. Neck: Aquacel dressing c/d/i. Hemovac 30mL(serosang)/24hrs. No hematoma. Resp: CTA bilat Neuro: GMNVI bilat LE: SCDs bilat. Soft. NT <Augustin Hensley P - Last Filed: 12/01/18 07:49> - Note Progress Note: Pain under better control today <Willian Matias - Last Filed: 12/02/18 10:52> Problem List - Problems (1) Spinal stenosis, cervical region Assessment/Plan: POD # 3 s/p C3-T1 PCDF Pain management consult Dr. Andrews ordered Cont OOB and ambulate with PT Hemovac dc'd on rounds DM diet Tight glycemic control Patient requesting REHAB facility as she doesn't feel safe at home (1 story walk -up) --> Case Management Tylenol 650mg q4hrs prn fever > 100.3F Incentive Spirometer Sliding Scale as ordered DC planning Code(s): M48.02 - SPINAL STENOSIS, CERVICAL REGION <Augustin Hensley P - Last Filed: 12/01/18 07:49>
[2018-12-01 08:22] LABS: ALBUMIN 2.8 g/dl (3.4-5.0); ALK PHOS 43 U/L (45-117); ANION GAP 9 MMOL/L (8-16); BILIRUBIN,TOTAL 0.7 mg/dl (0.2-1); BLOOD UREA NITROGEN 12 mg/dl (7-18); CALCIUM 8.5 mg/dl (8.5-10); CHLORIDE 96 mmol/L (98-107); CO2 29 mmol/L (21-32); CREATININE 0.5 mg/dl (0.55-1.3); GLUCOSE,RANDOM 84 mg/dl (74-106); POTASSIUM 3.8 mmol/L (3.5-5.1); SGOT/AST 27 U/L (15-37); SGPT/ALT 16 U/L (13-61); SODIUM 134 mmol/L (136-145); TOT PROT 6.3 g/dl (6.4-8.2)
[2018-12-01 08:29] LABS: BASO % 0.4 % (0-2.0); EOS % 1.8 % (0-4.5); HEMATOCRIT 31.2 % (32.4-45.2); HEMOGLOBIN 10.2 GM/dl (10.7-15.3); LYMPH % 25.8 % (8-40); MCH 27.9 pg (25.7-33.7); MCHC 32.7 g/dl (32.0-36.0); MEAN CELL VOLUME 85.3 fl (80-96); MEAN PLT VOLUME 9.5 fl (7.5-11.1); MONO % 9.9 % (3.8-10.2); NEUT % 62.1 % (42.8-82.8); PLATELET COUNT 213 K/MM3 (134-434); RBC 3.66 M/mm3 (3.60-5.2); RDW 12.3 % (11.6-15.6); WHITE BLOOD COUNT 6.4 K/mm3 (4.0-10.8)
[2018-12-01] MEDS: CYANOCOBALAMIN 1,000 MCG TABLET (FP) PO SCH (10:05)
[2018-12-01] MEDS: FERROUS SO4 325 MG TABLET (FP) PO SCH (10:07)
[2018-12-01] MEDS: FOLIC ACID 1 MG TABLET (FP) PO SCH (10:09)
[2018-12-01] MEDS: HYDROCHLOROTHIAZIDE 12.5 MG CAPSULE (FP) PO SCH (10:09)
[2018-12-01] MEDS: POLYETHYLENE GLYCOL 3350 119 GM BTL PO SCH ×2 (10:09→21:16)
[2018-12-01] MEDS: PANTOPRAZOLE 40 MG TABLET (FP) PO SCH (10:10)
--- NOTE | 2018-12-01 11:11 | PN ---
Physical Exam: SUBJECTIVE: Patient seen and examined. Complaining of 8/10 surgical site neck pain. OBJECTIVE: Vital Signs Period Temp Pulse Resp BP Sys/Loving Pulse Ox Last 24 Hr 97.9 F-99.4 F 83-107 17-20 108-117/59-77 95-100 GENERAL: The patient is awake, alert, and fully oriented, in no acute distress. HEAD: Posterior neck surgical dressing c/d/i; no surrounding erythema, warmth, fluctuance LUNGS: Breath sounds equal, clear to auscultation HEART: Regular rate and rhythm, S1, S2 without murmur, rub or gallop. ABDOMEN: Soft, nontender, nondistended EXTREMITIES: 2+ pulses, warm, well-perfused, no edema. NEUROLOGICAL: Cranial nerves II through XII grossly intact. Normal speech, steady gait observed. Moving all extremities freely. Laboratory Results - last 24 hr 11/30/18 11/30/18 11/30/18 10:50 11:47 21:20 WBC RBC Hgb Hct MCV MCH MCHC RDW Plt Count MPV Absolute Neuts (auto) Neutrophils % Lymphocytes % Monocytes % Eosinophils % Basophils % Sodium Potassium Chloride Carbon Dioxide Anion Gap BUN Creatinine Creat Clearance w eGFR POC Glucometer 111 174 Random Glucose Calcium Magnesium Total Bilirubin AST ALT Alkaline Phosphatase Total Protein Albumin Urine Color Yellow Urine Appearance Clear Urine pH 6.5 Ur Specific [place] 1.020 Urine Protein Negative Urine Glucose (UA) Negative Urine Ketones 1+ H Urine Blood Trace-intact H Urine Nitrite Negative Urine Bilirubin Negative Urine Urobilinogen 0.2 Ur Leukocyte Esterase Negative Urine RBC 0-3 Urine WBC 0-3 Ur Epithelial Cells 1+ Urine Bacteria None seen 12/01/18 12/01/18 12/01/18 06:05 07:04 07:04 WBC 6.4 RBC 3.66 Hgb 10.2 L Hct 31.2 L MCV 85.3 MCH 27.9 MCHC 32.7 RDW 12.3 Plt Count 213 MPV 9.5 Absolute Neuts (auto) 4.1 Neutrophils % 62.1 Lymphocytes % 25.8 Monocytes % 9.9 Eosinophils % 1.8 Basophils % 0.4 Sodium 134 L Potassium 3.8 Chloride 96 L Carbon Dioxide 29 Anion Gap 9 BUN 12 Creatinine 0.5 L Creat Clearance w eGFR > 60 POC Glucometer 89 Random Glucose 84 Calcium 8.5 Magnesium 2.0 Total Bilirubin 0.7 AST 27 ALT 16 Alkaline Phosphatase 43 L Total Protein 6.3 L Albumin 2.8 L Urine Color Urine Appearance Urine pH Ur Specific [place] Urine Protein Urine Glucose (UA) Urine Ketones Urine Blood Urine Nitrite Urine Bilirubin Urine Urobilinogen Ur Leukocyte Esterase Urine RBC Urine WBC Ur Epithelial Cells Urine Bacteria Active Medications Generic Name Dose Route Start Last Admin Trade Name Freq PRN Reason Stop Dose Admin Acetaminophen 650 mg 12/01/18 09:06 Tylenol - PO Q6H PRN FEVER Atorvastatin Calcium 10 mg 11/30/18 22:00 11/30/18 21:22 Lipitor - PO 10 mg HS YON Administration Bisacodyl 10 mg 11/29/18 12:55 Dulcolax Suppository - RC DAILY PRN CONSTIPATION Cyanocobalamin 1,000 mcg 11/29/18 10:00 11/30/18 10:35 Vitamin B12 - PO 1,000 mcg DAILY YON Administration Diazepam 5 mg 11/29/18 19:00 12/01/18 06:05 Valium - PO 5 mg Q6H YON Administration Diphenhydramine HCl 25 mg 11/28/18 16:22 11/29/18 15:11 Benadryl - PO 25 mg Q6H PRN Administration FOR ITCHING Docusate Sodium 100 mg 11/28/18 22:00 12/01/18 06:06 Colace - PO 100 mg TID YON Administration Ergocalciferol 50,000 unit 12/02/18 10:00 Drisdol - PO Fr@1000 YON Ferrous Sulfate 325 mg 11/29/18 10:00 11/30/18 10:35 Feosol - PO 325 mg DAILY YON Administration Folic Acid 1 mg 11/29/18 10:00 11/30/18 10:36 Folic Acid - PO 1 mg DAILY YON Administration Heparin Sodium (Porcine) 5,000 unit 11/28/18 22:00 12/01/18 06:08 Heparin - SQ 5,000 unit TID YON Administration Hydrochlorothiazide 12.5 mg 11/29/18 10:00 11/30/18 10:35 Hctz - PO 12.5 mg DAILY YON Administration Cefazolin Sodium 1 gm in 50 mls @ 100 mls/hr 11/30/18 11:00 12/01/18 01:34 Ancef 1 Gm Premixed Ivpb - IVPB 100 mls/hr Q8H-IV YON Administration Insulin Aspart 1 vial 11/28/18 16:30 12/01/18 06:08 Novolog Vial Sliding Scale - SQ Not Given ACHS YON Protocol Metformin HCl 500 mg 11/28/18 21:00 12/01/18 06:05 Glucophage Xr - PO 500 mg BIDAC YON Administration Morphine Sulfate 4 mg 11/28/18 16:22 11/29/18 16:56 Morphine Sulfate IVPUSH 12/01/18 16:21 4 mg Q4H PRN Administration PAIN LEVEL 7 - 10 Pantoprazole Sodium 40 mg 11/29/18 13:00 11/30/18 10:35 Protonix - PO 40 mg DAILY YON Administration Polyethylene Glycol 17 gm 11/29/18 22:00 11/30/18 22:00 Miralax (For Daily Use) - PO 17 g BID YON Administration Tramadol HCl 50 mg 12/01/18 09:05 Ultram - PO Q6H PRN PAIN LEVEL 6-10 ASSESSMENT/PLAN 58 year-old female with a PMH significant for HTN, HLD, Type II NIDDM, asthma, and chronic cervical stenosis s/p C3-T1 PCDF with Dr. Matias on 11/28/18. s/p C3-T1 PCDF --POD #3 --perioperative antibiotics per surgery; Cefazolin q8h --pain management per surgery: switch to Tylenol and Ultram only --protonix --bowel regimen --incentive spirometry --Hemovac drain out Hypertension --BP stable --continue HCTZ Hyperlipidemia --continue statin Type II NIDDM --continue metformin --Novolog sliding scale coverage FEN Fluids: PO intake adequate Electrolytes: replete as indicated Nutrition: regular diet DVT prophylaxis: OOB, ambulation, SCDs, TEDs, subq heparin Physical therapy Dispo: continues to require inpatient care. Full code. Visit type - Emergency Visit Emergency Visit: No - New Patient This patient is new to me today: No - Critical Care Critical Care patient: No
[2018-12-01] MEDS: ATORVASTATIN CA 10 MG TABLET (FP) PO SCH (21:05)
[2018-12-01] MEDS ORDERED: INSULIN (NOVOLOG) ASPART 100 UNITS/ML 10ML VIAL ONE (21:23)
[2018-12-01] MEDS: traMADol HCL 50 MG TABLET PO PRN (23:31)
[2018-12-02] MEDS: CEFAZOLIN 1 GM/D5W 1 GM/50 ML BAG IVPB SCH ×4 (01:11→17:16)
[2018-12-02] MEDS: diazePAM 5 MG TABLET PO SCH ×3 (01:12→13:47)
[2018-12-02] MEDS: DOCUSATE SODIUM 100 MG CAPSULE (FP) PO SCH ×2 (06:18→13:47)
[2018-12-02] MEDS: HEPARIN NA (PORCINE) 5,000 UNITS/ML 1ML VIAL SQ SCH ×2 (06:18→13:47)
[2018-12-02] MEDS: INSULIN SLIDING SCALE (NOVOLOG) 1 VIAL SQ SCH ×4 (06:20→17:20)
[2018-12-02] MEDS: ACETAMINOPHEN 325 MG TABLET (FP) PO PRN ×2 (06:22→17:18)
[2018-12-02] MEDS: KETOROLAC TROMETHAMINE 15 MG/ML VIAL IVPUSH SCH (08:07)
[2018-12-02] MEDS: FOLIC ACID 1 MG TABLET (FP) PO SCH (09:33)
[2018-12-02] MEDS: CYANOCOBALAMIN 1,000 MCG TABLET (FP) PO SCH (09:33)
[2018-12-02] MEDS: HYDROCHLOROTHIAZIDE 12.5 MG CAPSULE (FP) PO SCH (09:33)
[2018-12-02] MEDS: PANTOPRAZOLE 40 MG TABLET (FP) PO SCH (09:33)
[2018-12-02] MEDS: FERROUS SO4 325 MG TABLET (FP) PO SCH (09:33)
[2018-12-02] MEDS: POLYETHYLENE GLYCOL 3350 119 GM BTL PO SCH (09:36)
[2018-12-02] MEDS ORDERED: PT OWN MED DRAWER 7, Y5N ONE (09:36)
[2018-12-02] MEDS ORDERED: ERGOCALCIFEROL (VIT D2) 50,000 UNIT (1.25 MG) CAPSULE PO SCH (10:00)
[2018-12-02] MEDS ORDERED: oxyCODONE HCL 10 MG SUSTAINED ACTING TABLET PO SCH (10:00)
[2018-12-02] MEDS ORDERED: INSULIN (NOVOLOG) ASPART 100 UNITS/ML 10ML VIAL ONE (11:21)
[2018-12-02] MEDS ORDERED: ONDANSETRON 4 MG/2 ML VIAL IVPUSH PRN (12:43)
[2018-12-02] MEDS ORDERED: MAGNESIUM HYDROX 2400MG/30ML ORAL SUSPENSION 30 ML CUP PO PRN ×2 (14:56→15:02)
--- NOTE | 2018-12-02 15:05 | DS ---
"Physical Exam: SUBJECTIVE: Patient seen and examined today earlier this am. No complaints of CP /SOB. No abd pain. Voiding without difficulty. Passing flatus. She ambulated in the hallways this afternoon. OBJECTIVE: Vital Signs Period Temp Pulse Resp BP Sys/Loving Pulse Ox Last 24 Hr 98.2 F-99.1 F 72-110 18-18 106-134/64-78 94-99 PHYSICAL EXAM GENERAL: The patient is awake, alert, and fully oriented, in no acute distress. NECK: Trachea midline, supple. Posterior Neck: dressing changed. Inc c/d/i with pako. No driange or erythema noted. New aquacel reapplied. LUNGS: Breath sounds equal, clear to auscultation bilaterally. HEART: Tachycardic and regular rhythm. ABDOMEN: Soft, nontender, nondistended. EXTREMITIES: 2+ pulses, warm, well-perfused, no edema. SCDs in place. NEUROLOGICAL: 5/5 dorsi/plantar flexion b/l. Drafter Mechanical strength equal B/l. 5/5 flexion/extension b/l. LABS Laboratory Results - last 24 hr 12/01/18 12/02/18 12/02/18 21:12 06:17 11:14 POC Glucometer 156 97 138 HOSPITAL COURSE: The patient was admitted to the Med-Surg Unit after an elective repair of their chronic cervcial stenosis with radiculopathy. Now, s/p C3-T1 PCDF . Narcotic and non-narcotic pain management control was achieved with an oral and IV approach. POD #3, the surgical drain was removed fully intact and without incident. An xray was obtained and confirmed hardware placement at C3-T1, no fractures or dislocations. Eli-operative IV ABX were administered. DVT prophylaxis was achieved with SCDs and early ambulation. The patient ambulated with Physical Therapy and recommendation for home PT aranged as well as home nursing visit. Narcotic scripts and or muscle relaxants were checked with [facility] POWERTR[employer] DESIGN ENGINEER prior to escibe. The discharge instructions and an oral pain management plan were reviewed with the patient. All questions answered. Above plan discussed with Dr. Matias and agreed. Date of Admission:11/28/18 Date of Discharge: 12/02/18 Minutes to complete discharge: 30 <Rakel Sargent - Last Filed: 12/02/18 15:55> Physical Exam: SUBJECTIVE: Patient seen and examined OBJECTIVE: PHYSICAL EXAM GENERAL: The patient is awake, alert, and fully oriented, in no acute distress. HEAD: Normal with no signs of trauma. EYES: PERRL, extraocular movements intact, sclera anicteric, conjunctiva clear. ENT: Ears normal, nares patent, oropharynx clear without exudates, moist mucous membranes. NECK: Trachea midline, full range of motion, supple. LUNGS: Breath sounds equal, clear to auscultation bilaterally, no wheezes, no crackles, no accessory muscle use. HEART: Regular rate and rhythm, S1, S2 without murmur, rub or gallop. ABDOMEN: Soft, nontender, nondistended, normoactive bowel sounds, no guarding, no rebound, no hepatosplenomegaly, no masses. EXTREMITIES: 2+ pulses, warm, well-perfused, no edema. NEUROLOGICAL: Cranial nerves II through XII grossly intact. Normal speech, gait not observed. PSYCH: Normal mood, normal affect. SKIN: Warm, dry, normal turgor, no rashes or lesions noted. LABS HOSPITAL COURSE: Date of Admission:11/28/18 Date of Discharge: 12/05/18 Patient seen and examined Agree with above D/C Planning <Willian Matias - Last Filed: 12/05/18 11:08> Discharge Summary Reason For Visit: CERVICAL STENOSIS Current Active Problems Spinal stenosis, cervical region (Acute) - Home Medications Comprehensive Discharge Medication List: Ambulatory Orders Hydrochlorothiazide [Hctz -] 12.5 mg PO DAILY 11/05/16 metFORMIN HCL [Metformin ER Osmotic] 500 mg PO BID 11/05/16 Cholecalciferol (Vitamin D3) [Vitamin D3] 50,000 unit PO WEEKLY 02/01/17 Cyanocobalamin [Vitamin B12 -] 1,000 mcg PO DAILY 02/01/17 Acetaminophen [Tylenol .Extra-Strength -] 500 mg PO Q4H 11/21/18 Simvastatin 20 mg PO DAILY 11/29/18 Cyclobenzaprine HCl [Flexeril 10 mg] 10 mg PO BID PRN #14 tablet 12/02/18 Docusate Sodium [Colace -] 100 mg PO BID #14 capsule 12/02/18 Ondansetron [Zofran -] 4 mg PO BID PRN #6 tablet 12/02/18 Oxycodone HCl 5 mg PO Q6H PRN #30 tablet MDD 8 12/02/18 <Rakel Sargent - Last Filed: 12/02/18 15:55> - Home Medications Comprehensive Discharge Medication List: Ambulatory Orders Hydrochlorothiazide [Hctz -] 12.5 mg PO DAILY 11/05/16 metFORMIN HCL [Metformin ER Osmotic] 500 mg PO BID 11/05/16 Cholecalciferol (Vitamin D3) [Vitamin D3] 50,000 unit PO WEEKLY 02/01/17 Cyanocobalamin [Vitamin B12 -] 1,000 mcg PO DAILY 02/01/17 Acetaminophen [Tylenol .Extra-Strength -] 500 mg PO Q4H 11/21/18 Simvastatin 20 mg PO DAILY 11/29/18 Cyclobenzaprine HCl [Flexeril 10 mg] 10 mg PO BID PRN #14 tablet 12/02/18 Docusate Sodium [Colace -] 100 mg PO BID #14 capsule 12/02/18 Ondansetron [Zofran -] 4 mg PO BID PRN #6 tablet 12/02/18 Oxycodone HCl 5 mg PO Q6H PRN #30 tablet MDD 8 12/02/18 <Willian Matias - Last Filed: 12/05/18 11:08> Condition: Stable - Instructions Diet, Activity, Other Instructions: Post Operative Instructions - Dr Matias Diet: You may resume your regular diet. We recommend eating plenty of fiber rich foods to prevent constipation, which can be caused by taking narcotic pain medications. You may also use a stool softener such as DulcoEase. We recommend drinking plenty of water unless you are on fluid restrictions for another medical condition. If you are a diabetic, make sure to keep your glucose well controlled as elevated glucose levels promote infection. Medications: You may resume your previous medications unless otherwise instructed by your surgeon, primary care doctor or copier repair technician. You have been prescribed a Narcotic pain medication. Driving or drinking alcohol is PROHIBITED while taking narcotic pain medication, as is operating any heavy machinery. Activity: No bending and or twisting at the waist. No lifting greater than [address] until seen in the office for your first post-operative visit. You may be a passenger for a short time (20-30 minutes) until you are able to tolerate longer distances. Wound Care: Keep area clean and dry. May remove dressing in two (2) days and replace with clean gauze and occlusive dressing such as a tegaderm. NO BATHS. You may shower starting two (2) days after your surgery. When showering, leave the occlusive(plastic) dressing in place and change if it appears wet. Avoid direct water stream onto your incision. General Recommendations: If sitting, use only a straight back chair to ensure proper support, not to exceed a half hour at a time. Lie only on a firm mattress, no couches or recliner chairs. You may lie on your back or side, but not on your abdomen. * Absolutely no bending, stooping, pushing, lifting or straining. * Avoid housework, especially vacuuming or sweeping. * OK to cook, as long as you are not lifting anything heavier than 5 pounds. * Use proper body mechanics to maintain a neutral spine position. * Increasing pain is a red flag telling you to rest. Call your surgeon or report to the ED if you develop: Fevers over 101.5 Chest pain, trouble breathing, calf pain Drainage from the incision (yellow/green, foul smelling) Follow-up Call surgeon's office to schedule your follow-up appointment in two weeks. Referred to following clinics/specialists for follow-up care: Willian Matias MD [facility]/[address], [place] [id number] [facility] [employer] DESIGN ENGINEER This report was requested by: Augustin Hensley | Reference #: [id number] Disposition: HOME This patient is new to me today: Yes Date on this admission: 12/02/18 Emergency Visit: No Critical Care patient: No - Discharge Referral Referred to [facility] No <Rakel Sargent - Last Filed: 12/02/18 15:55>"
[2018-12-02] MEDS: traMADol HCL 50 MG TABLET PO PRN (17:19)
[2018-12-02 18:10] VITALS: BP 110/64; PULSE 80; TEMP 98.8
== END 2018-12-02 18:06 | disposition home or self-care (01) | DRG 473 ==
PROVIDERS: ADMIT Orthopaedic Surgery Orthopaedic Surgery of the Spine; ATTEND Orthopaedic Surgery Orthopaedic Surgery of the Spine
PROC: 0RG Upper Joints, Fusion (ICD-10-PCS; 2018-11-28)
PROC: 01N10ZZ Release Cervical Nerve, Open Approach (ICD-10-PCS; 2018-11-28)
PROC: 0RT30ZZ Resection of Cervical Vertebral Disc, Open Approach (ICD-10-PCS; 2018-11-28)
PROC: 0RG Upper Joints, Fusion (ICD-10-PCS; principal; 2018-11-28 13:37)
DX: M48.02 Spinal stenosis, cervical region (principal); M54.12 Radiculopathy, cervical region; I10 Essential (primary) hypertension; E11.9 Type 2 diabetes mellitus without complications; E78.5 Hyperlipidemia, unspecified; J45.909 Unspecified asthma, uncomplicated; Z79.84 Long term (current) use of oral hypoglycemic drugs; R35.0 Frequency of micturition
CPT/HCPCS: 36415; 72050-TC-FY; 80048; 80053; 81003; 81015; 82962; 83735; 85025; 85027; 94760; 97116-GP; 97162-GP; J1644